=== PATIENT | male | born 1930 | race Caucasian/White ===

== ENCOUNTER 2017-01-02 11:04 | Inpatient (IN) | payer MEDICARE, BC ==
[~2017-01-02] VITALS: Ht 182.9 cm; Wt 79.4 kg
[2017-01-02] MEDS ORDERED: METF500T4 PO (11:50)
[2017-01-02] MEDS ORDERED: DUTA0.5C PO (11:50)
[2017-01-02] MEDS ORDERED: ATOR20TA9 PO (11:50)
[2017-01-02] MEDS ORDERED: NATE60TA2 PO (11:50)
[2017-01-02] MEDS ORDERED: TAMS0.4C2 PO (11:50)
[2017-01-02] MEDS ORDERED: EZET10TA18 PO (11:50)
[2017-01-02] MEDS ORDERED: INDA2.5T PO (11:50)
[2017-01-02] MEDS ORDERED: SODIUM CHLORIDE FLUSH 10ML SYR IVF ONE (12:00)
[2017-01-02] MEDS ORDERED: SODIUM CHLORIDE 0.9% 1,000ML IVBOLUS ONE (12:00)
[2017-01-02] MEDS ORDERED: PANTOPRAZOLE 40 MG IV IVPush ONE (12:00)
[2017-01-02] MEDS ORDERED: FAMOTIDINE 20 MG/2 ML IVPush ONE (12:00)
[2017-01-02 12:16] LABS: HEMATOCRIT 24.7 % (39.2-51.8); HEMOGLOBIN 8.3 g/dL (13.7-18.0); WHITE BLOOD COUNT 7.3 x10^3/uL (3.4-10)
[2017-01-02 12:27] LABS: ASPARTATE AMINO TRANSFERASE 16 U/L (15-37); BLOOD UREA NITROGEN 70 mg/dL (7-18)
[2017-01-02] MEDS ORDERED: PANTOPRAZOLE 40 MG IV ONE (12:31)
[2017-01-02] MEDS ORDERED: FAMOTIDINE 20 MG/2 ML ONE (12:31)
[2017-01-02 14:32] VITALS: BP 136/59
[2017-01-02 14:49] VITALS: BP 143/62
[2017-01-02 15:09] VITALS: BP 137/56
[2017-01-02 15:33] VITALS: BP 143/76
[2017-01-02] MEDS ORDERED: DEXTROSE 50%, 50ML SYRINGE IVPush PRN (16:00)
[2017-01-02] MEDS ORDERED: ONDANSETRON 2MG/ML, 2ML IVPush PRN (16:00)
[2017-01-02] MEDS ORDERED: hydrALAzine 20 MG/ML, 1ML IVPush PRN (16:00)
[2017-01-02] MEDS ORDERED: DEXTROSE 4 GM TAB.CHEW PO PRN (16:00)
[2017-01-02] MEDS ORDERED: GLUCAGON 1 MG IM PRN (16:00)
[2017-01-02] MEDS: SODIUM CHLORIDE 0.9% 1,000 ML IV SCH (17:36)
[2017-01-02 19:05] VITALS: BP 175/73
[2017-01-02] MEDS: SODIUM CHLORIDE FLUSH 10ML SYR IVF SCH (22:07)
[2017-01-03 01:17] VITALS: BP 199/70
[2017-01-03 03:18] VITALS: BP 170/75
[2017-01-03 04:57] LABS: HEMATOCRIT 27.1 % (39.2-51.8); HEMOGLOBIN 9.3 g/dL (13.7-18.0); WHITE BLOOD COUNT 6.4 x10^3/uL (3.4-10)
[2017-01-03 05:05] LABS: BLOOD UREA NITROGEN 56 mg/dL (7-18)
[2017-01-03] MEDS: SODIUM CHLORIDE 0.9% 1,000 ML IV SCH ×2 (06:34→20:41)
[2017-01-03 07:00] VITALS: BP 182/67
[2017-01-03] MEDS ORDERED: PANTOPRAZOLE 40 MG IV IVPush SCH (07:30)
[2017-01-03] MEDS: TAMSULOSIN 0.4 MG CAP.ER.24H PO SCH (08:13)
[2017-01-03] MEDS: SODIUM CHLORIDE FLUSH 10ML SYR IVF SCH ×2 (08:13→20:41)
[2017-01-03] MEDS: INSULIN ASPART 100 UNITS/ML, PEN SQ-INSULIN SCH ×3 (11:00→20:48)
[2017-01-03] MEDS ORDERED: MAGNESIUM SULFATE PMX 2GM/50ML 50 ML IV ONE (11:00)
[2017-01-03] MEDS: EZETIMIBE 10 MG TABLET PO SCH (11:24)
[2017-01-03] MEDS ORDERED: hydrALAzine 20 MG/ML, 1ML IVPush PRN (12:00)
[2017-01-03 12:25] LABS: HEMATOCRIT 28.3 % (39.2-51.8); HEMOGLOBIN 9.5 g/dL (13.7-18.0)
[2017-01-03 13:36] VITALS: BP 158/77
[2017-01-03] MEDS: AMLODIPINE 5 MG TABLET PO SCH ×2 (15:34→20:41)
[2017-01-03 19:28] VITALS: BP 172/77
[2017-01-03 19:45] LABS: HEMATOCRIT 29.1 % (39.2-51.8); HEMOGLOBIN 9.6 g/dL (13.7-18.0)
[2017-01-03] MEDS: PANTOPRAZOLE 40 MG IV IVPush SCH (20:41)
[2017-01-03] MEDS: ATORVASTATIN 20 MG TABLET PO SCH (20:41)
[2017-01-04 01:04] VITALS: BP 167/73
[2017-01-04 05:18] LABS: HEMATOCRIT 27.6 % (39.2-51.8); HEMOGLOBIN 9.3 g/dL (13.7-18.0)
[2017-01-04 07:25] VITALS: BP 159/86
[2017-01-04 07:32] LABS: BLOOD UREA NITROGEN 34 mg/dL (7-18)
[2017-01-04] MEDS: INSULIN ASPART 100 UNITS/ML, PEN SQ-INSULIN SCH ×4 (08:00→20:14)
[2017-01-04] MEDS: PANTOPRAZOLE 40 MG IV IVPush SCH ×2 (08:05→20:13)
[2017-01-04] MEDS: AMLODIPINE 5 MG TABLET PO SCH ×2 (08:06→20:14)
[2017-01-04] MEDS: TAMSULOSIN 0.4 MG CAP.ER.24H PO SCH (08:06)
[2017-01-04] MEDS: EZETIMIBE 10 MG TABLET PO SCH (08:06)
[2017-01-04] MEDS: SODIUM CHLORIDE FLUSH 10ML SYR IVF SCH ×2 (08:09→20:13)
[2017-01-04] MEDS ORDERED: FENTANYL PF 100 MCG/2ML ONE (09:59)
[2017-01-04] MEDS ORDERED: MIDAZOLAM 1 MG/ML, 5ML ONE (10:00)
[2017-01-04] MEDS: SODIUM CHLORIDE 0.9% 1,000 ML IV SCH (12:04)
[2017-01-04 12:36] LABS: HEMATOCRIT 29.2 % (39.2-51.8); HEMOGLOBIN 9.8 g/dL (13.7-18.0)
[2017-01-04 14:03] VITALS: BP 149/54
[2017-01-04 19:20] VITALS: BP 160/70
[2017-01-04] MEDS: ATORVASTATIN 20 MG TABLET PO SCH (20:14)
[2017-01-05] MEDS: SODIUM CHLORIDE 0.9% 1,000 ML IV SCH (01:17)
[2017-01-05 01:26] VITALS: BP 190/81
[2017-01-05 05:24] LABS: HEMATOCRIT 27.9 % (39.2-51.8); HEMOGLOBIN 9.4 g/dL (13.7-18.0); WHITE BLOOD COUNT 8.4 x10^3/uL (3.4-10)
[2017-01-05 05:29] LABS: BLOOD UREA NITROGEN 31 mg/dL (7-18)
[2017-01-05 06:40] VITALS: BP 162/67
[2017-01-05] MEDS: INSULIN ASPART 100 UNITS/ML, PEN SQ-INSULIN SCH ×2 (07:00→11:17)
[2017-01-05] MEDS ORDERED: CARVEDILOL 6.25 MG TABLET PO SCH (08:30)
[2017-01-05] MEDS: TAMSULOSIN 0.4 MG CAP.ER.24H PO SCH (08:43)
[2017-01-05] MEDS: PANTOPRAZOLE 40 MG IV IVPush SCH (08:43)
[2017-01-05] MEDS: EZETIMIBE 10 MG TABLET PO SCH (08:43)
[2017-01-05] MEDS: SODIUM CHLORIDE FLUSH 10ML SYR IVF SCH (08:48)
[2017-01-05] MEDS ORDERED: LOSARTAN 50MG TABLET PO SCH (09:00)
[2017-01-05 11:15] VITALS: BP 142/75
[2017-01-05] MEDS ORDERED: CARV6.2512 PO (12:08)
[2017-01-05] MEDS ORDERED: OMEP-110 PO (12:08)
[2017-01-05] MEDS ORDERED: LOSA50TA2 PO (12:08)
== END 2017-01-05 13:28 | disposition home or self-care (01) | DRG 377 ==
LOC: ED 13:42 → EDIP 14:00 → 3NE 15:30 → DCLOUNGE 01-05 13:14
PROVIDERS: ADMIT Hospitalist; ATTEND Hospitalist
PROC: 30233N1 Transfusion of Nonautologous Red Blood Cells into Peripheral Vein, Percutaneous Approach (ICD-10-PCS; 2017-01-02)
PROC: 0DB68ZX Excision of Stomach, Via Natural or Artificial Opening Endoscopic, Diagnostic (ICD-10-PCS; principal; 2017-01-04 11:00)
DX: K25.4 Chronic or unspecified gastric ulcer with hemorrhage (principal); N17.0 Acute kidney failure with tubular necrosis; E87.2 Acidosis; E44.1 Mild protein-calorie malnutrition; K25.9 Gastric ulcer, unspecified as acute or chronic, without hemorrhage or perforation; D50.0 Iron deficiency anemia secondary to blood loss (chronic); E11.22 Type 2 diabetes mellitus with diabetic chronic kidney disease; Z68.23 Body mass index [BMI] 23.0-23.9, adult; E78.5 Hyperlipidemia, unspecified; I12.9 Hypertensive chronic kidney disease with stage 1 through stage 4 chronic kidney disease, or unspecified chronic kidney disease; K59.00 Constipation, unspecified; N18.9 Chronic kidney disease, unspecified; N40.1 Benign prostatic hyperplasia with lower urinary tract symptoms; Z87.11 Personal history of peptic ulcer disease; Z95.1 Presence of aortocoronary bypass graft; Z88.0 Allergy status to penicillin
CPT/HCPCS: 36415; 36430; 80048; 80053; 81003; 82962; 83605; 83735; 84100; 85014; 85018; 85025; 85610; 85730; 86850; 86900; 86923; 88305; 93306; 96361; 96374; 96375; J1815; J2250; J3010; C9113; J3475; J7030; P9016; S0028